=== PATIENT | female | born 1965 | race Caucasian/White ===

== ENCOUNTER 2019-05-21 10:45 | Emergency (ER) | payer OTHER ==
[2019-05-21 10:51] VITALS: BP 141/78; PULSE 75; TEMP 98.7; BMI 46.9
--- NOTE | 2019-05-21 10:55 | PDOC ---
History of Present Illness - General Chief Complaint: Pain Stated Complaint: RUQ PAIN Time Seen by Provider: 05/21/19 10:49 History Source: Patient Exam Limitations: No Limitations - History of Present Illness Travel History: No Initial Comments: 05/21/19 11:10 53y F hx of hypothyroidism, gall stones presents with RUQ pain intermittently since . Pt endorses dietary indescretions last week and has been having worsening RUQ apin rosa tis non radiationg. no associated fever/chills, n/v, cp, sob, hutson, leg swelling. Denies hematuria, dysuria, foul smelling urine. surgical hx: c section, sp appendectomy ~30 yrs ago Constitutional - no reported Fever, Chills, HEENT: no reported vision changes, sore throat Respiratory: no reported cough, sob, hemoptysis Cardiac: no reported chest pain, palpitations, light headedness, leg swelling Abd/GI: no reported abd pain, nausea, vomiting, blood per rectum, melena, diarrhea : no reported dysuria, frequency, discharge Musculskelatal - no reported back pain, joint swelling skin - no reported bruising, erythema, rash neurological: no reported headache, numbness, focal weakness, tingling, ataxia, hematologic: no reported easy bruising, easy bleeding GENERAL: The patient is awake, alert, and fully oriented, Nontoxic - in no acute distress, obese HEAD: Normocephalic, atraumatic. EYES: extraocular movements intact, sclera anicteric, conjunctiva clear. ENT: Normal voice, Moist mucous membranes. NECK: Normal range of motion, supple LUNGS: Breath sounds equal, clear to auscultation bilaterally. No wheezes, no rhonchi, no rales. HEART: Regular rate and rhythm, normal S1 and S2 without murmur, rub or gallop. ABDOMEN: Soft, nontender, No guarding, no rebound. No CVA tenderness, neg murphies, neg mcburneys EXTREMITIES: Normal range of motion, no edema. NEUROLOGICAL: No facial assymetry, Normal speech, PSYCH: Normal mood, normal affect. SKIN: Warm, Dry, normal turgor, Past History - Past Medical History Allergies/Adverse Reactions: Allergies Allergy/AdvReac Type Severity Reaction Status Date / Time Penicillins Allergy Swelling Verified 05/21/19 10:47 Home Medications: Ambulatory Orders Levothyroxine [Synthroid -] 75 mcg PO DAILY 05/21/19 COPD: No Thyroid Disease: Yes - Surgical History Appendectomy: Yes - Suicide/Smoking/Psychosocial Hx Smoking Status: No Smoking History: Never smoked Number of Cigarettes Smoked Daily: 0 Hx Alcohol Use: No Drug/Substance Use Hx: No *Physical Exam - Vital Signs Last Vital Signs Temp Pulse Resp BP Pulse Ox 98.7 F 75 18 141/78 100 05/21/19 10:46 05/21/19 10:46 05/21/19 10:46 05/21/19 10:46 05/21/19 10:46 ED Treatment Course - LABORATORY CBC & Chemistry Diagram: 05/21/19 11:30 05/21/19 11:30 Medical Decision Making - Medical Decision Making 05/21/19 14:00 labs reviewed unremarkble ua neg for hematuria/infection GB US noted for cholelithaisis wthout acute cholecystitis pt feeling improved, repeat abd exam again reveals a soft nontender abd with neg murphies or mcburney ttp/rebound/guarding anticipate dc with pmd/gi fu I discussed the physical exam findings, ancillary test results and final diagnoses with the patient. I answered all of the patient's questions. The patient was satisfied with the care received and felt comfortable with the discharge plan and treatment plan. The patient will call their primary care physician within 24 hours to arrange follow-up and will return to the Emergency Department with any new, persistent or worsening symptoms. *DC/Admit/Observation/Transfer Diagnosis at time of Disposition: Gall stone Qualifiers: Cholecystitis presence: without cholecystitis Biliary obstruction: without biliary obstruction Qualified Code(s): K80.20 - Calculus of gallbladder without cholecystitis without obstruction - Discharge Dispostion Disposition: HOME Condition at time of disposition: Improved Decision to Admit order: No - Referrals Referrals: Marcia Anaya MD [Primary Care Provider] - Porter Alves MD [Staff Physician] - - Patient Instructions Printed Discharge Instructions: DI for Abdominal Pain-Adult, DI for Gallstones Additional Instructions: Return to the emergency department immediately with ANY new, persistent or worsening symptoms including worsening abdominal pain, fevers, inability to tolerate oral intake, chest pain, shortness of breath or any other concerns. Stay well hydrated. You MUST call and follow up with your doctor tomorrow. Your emergency department visit is not complete without a followup with your doctor for reevaluation. Please make sure your doctor reviews the results of your emergency evaluation. Print Language: [place] - Post Discharge Activity
[2019-05-21] MEDS ORDERED: KETOROLAC TROMETHAMINE 30 MG/1 ML VIAL IVPUSH ONE (11:10)
[2019-05-21] MEDS ORDERED: KETOROLAC TROMETHAMINE 30 MG/1 ML VIAL ONE (11:34)
[2019-05-21 11:46] LABS: BASO % 0.7 % (0-2.0); HEMATOCRIT 40.5 % (32.4-45.2); HEMOGLOBIN 13.2 GM/dl (10.7-15.3); LYMPH % 33.5 % (8-40); MCH 28.5 pg (25.7-33.7); MCHC 32.7 g/dl (32.0-36.0); MEAN CELL VOLUME 87.4 fl (80-96); MEAN PLT VOLUME 9.1 fl (7.5-11.1); MONO % 7.2 % (3.8-10.2); NEUT % 57.6 % (42.8-82.8); PLATELET COUNT 275 K/MM3 (134-434); RBC 4.63 M/mm3 (3.60-5.2); RDW 13.4 % (11.6-15.6); WHITE BLOOD COUNT 6.9 K/mm3 (4.0-10.8)
[2019-05-21 12:09] LABS: ALBUMIN 3.8 g/dl (3.4-5.0); BILIRUBIN,TOTAL 0.5 mg/dl (0.2-1); CALCIUM 9.4 mg/dl (8.5-10); CREATININE 0.6 mg/dl (0.55-1.3); POTASSIUM 4.5 mmol/L (3.5-5.1); TOT PROT 6.9 g/dl (6.4-8.2)
== END 2019-05-21 14:21 | disposition home or self-care (01) ==
LOC: FER 10:45
PROC: 3E0333Z Introduction of Anti-inflammatory into Peripheral Vein, Percutaneous Approach (ICD-10-PCS; principal; 2019-05-21)
DX: K82.0 Obstruction of gallbladder (principal); E07.9 Disorder of thyroid, unspecified
CPT/HCPCS: 36415; 76705-TC; 80053; 81003; 83690; 85025; 99283-25